=== PATIENT | female | born 1970 | race Caucasian/White ===

== ENCOUNTER 2016-11-16 17:04 | Emergency (ER) | payer OTHER ==
[~2016-11-16 17:04] MED LIST: BACTRIM DS TABL1 TAB PO; BENTYL10 M1 PO; BENTYL20 M1 PO; BENZONATATE PO; CELEXA PO; CELEXA20 M1 PO; CLARITIN D PO; CLARITIN10 MG PO; DEPAKOTE125 MG PO; DESYREL100 MG PO; DICYCLOMINE HCL20 MG PO; DILANTIN KAPSE100 MG PO; DILANTIN PO; FERROUS SULFATE PO; KEFLEX PO; KEPPRA100 MG/ML PO; KEPPRA1000 MG PO; KEPPRA500 MG PO; MOBIC PO; MUCINEX DM1 TAB.SR . PO; PAXIL PO; PHENERGAN PO; PHENERGAN12.5 MG PO; ROBITUSSIN A-C S5 ML PO; SYNTHROID PO; TYLENOL #3 PO; ULTRAM PO; VICODIN 5/500 T1 TAB PO; ZITHROMAX PO
== END 2016-11-16 18:53 | disposition home or self-care (01) ==
LOC: SED 17:04
DX: G43.909 Migraine, unspecified, not intractable, without status migrainosus (principal); I50.9 Heart failure, unspecified; E11.9 Type 2 diabetes mellitus without complications; Z90.49 Acquired absence of other specified parts of digestive tract; F41.9 Anxiety disorder, unspecified; F32.9 Major depressive disorder, single episode, unspecified
CPT/HCPCS: 96361; 96374; 96375; 99284; J1200; J1885; J2405

== ENCOUNTER 2017-01-21 23:30 | Emergency (ER) | payer OTHER ==
--- NOTE | ~2017-01-21 | EKG ---
PATIENT: PAPI VERDUGO UNIT #: [id number] Ventricular Rate: 88 BPM Atrial Rate: 88 BPM P-R Interval: 132 ms QRS Duration: 74 ms Q-T Interval: 412 ms QTC Calculation(Bezet): 498 ms P Irving: 55 degrees Calculated R Irving: 40 degrees Calculated T Irving: 58 degrees Diagnosis Line: Normal sinus rhythm Diagnosis Line: Prolonged QT Diagnosis Line: Abnormal ECG Diagnosis Line: When compared with ECG of 22-OCT-2016 12:08, Diagnosis Line: No significant change was found Diagnosis Line: Confirmed by MARY PAL MD ([id number]) on 01/23/2017 Diagnosis Line: 5:49:54 PM INTERPRETING MD: DEMARCO VELASCO
--- NOTE | ~2017-01-21 | CR63 ---
[facility]. [facility] A Service of [facility] & [facility] RADIOLOGY TEXT RESULTS PATIENT: PAPI VERDUGO LOCATION: SED : 72 UNIT #: [id number] AGE: [address]: Yo Mclaughlin MD SEX: F ORDER DR: [id number] [place] [id number] E MR#: [id number] Acc #: [id number] NAME: PAPI VERDUGO : 1970 SEX: F STUDY DATE/TIME: 01/22/2017 1:02 UNIT: SED ROOM: STUDY DESCRIPTION: CR Chest 2 View Attending Physician: Yo Mclaughlin M.D. Ordering Physician: Yo Mclaughlin M.D. Primary Care Physician: Primary Care Physician No MEDICAL IMAGING REPORT This report is preliminary unless electronic signature is present. EXAM Two-view chest INDICATION Chest pain with expiration. 2-day duration. FINDINGS PA and lateral views of the chest compared to 09/30/2016. Heart and mediastinal contour is normal. Lungs are clear. No pleural effusion. IMPRESSION Negative chest radiograph. Dictated by... Mikhail Haynes M.D. THIS IS AN ELECTRONICALLY VERIFIED REPORT Mikhail Haynes M.D. at 01/22/2017 4:04 AM KEN/lyly TD: 01/22/2017 04:01 JOB #: [id number] MEDICAL IMAGING REPORT Page 1 of 1
[2017-01-21] MEDS ORDERED: DICYCLOMINE HCL20 MG (23:39)
[2017-01-22 00:09] LABS: BASOPHIL% 0.4 % (0-2.5); EOSINOPHIL# 0.2 X10e3 (0-0.7); EOSINOPHIL% 4.9 % (0.0-7.0); HEMATOCRIT 37.1 % (35.0-45.0); HEMOGLOBIN 12.2 gm/dL (12.0-16.0); LYMPHOCYTE# 1.8 X10e3 (1.0-3.5); LYMPHOCYTE% 37.9 % (17.0-45.0); MEAN CELL VOLUME 93.8 FL (83-96); MEAN CORPUSCULAR HEMOGLOBIN 30.8 PG (28-34); MEAN CORPUSCULAR HGB CONC 32.9 g/dL (30-36); MEAN PLATELET VOLUME 10.9 FL (6.5-11.5); MONOCYTE# 0.3 X10e3 (0-1.0); MONOCYTE% 6.7 % (3.0-12.0); NEUTROPHIL# 2.4 X10e3 (1.5-7.1); NEUTROPHIL% 50.1 % (40-75); PLATELET COUNT 127 X10e3 (140-420); RED BLOOD COUNT 3.96 X10e (3.90-5.30); RED CELL DISTRIBUTION WIDTH 14.6 % (11.0-15.5); WHITE BLOOD COUNT 4.8 X10e3 (4.0-10.5)
[2017-01-22 00:11] LABS: DIFF IND NO
[2017-01-22 00:18] LABS: INR 1.1; PROTHROMBIN TIME (PATIENT) 12.9 SECONDS (9.5-12.4)
[2017-01-22 00:23] LABS: POC - CKMB <1.0 ng/mL (0.0-7.9); POC - TROPONIN <0.05 ng/mL (<=0.05)
[2017-01-22 00:31] LABS: ALBUMIN SERUM 3.6 g/dL (3.5-5.0); ALKALINE PHOSPHATASE 89 U/L (32-92); ALT (SGPT) 23 U/L (10-40); AST (SGOT) 19 U/L (10-42); BILIRUBIN, DIRECT <0.1 mg/dL (0.0-0.2); BILIRUBIN,INDIRECT 0.2 mg/dL (0.0-0.9); BILIRUBIN,TOTAL 0.3 mg/dL (0.2-2.0); BLOOD UREA NITROGEN 20 mg/dL (9-23); BUN/CREATININE RATIO 28.57; CALCIUM SERUM 7.9 mg/dL (8.4-10.2); CARBON DIOXIDE 25 mmol/L (22-31); CHLORIDE 113 mmol/L (100-111); CREATININE SERUM 0.7 mg/dL (0.6-1.4); GLOM FILT RATE Estimated 104.6 mL/min (>60); GLUCOSE FASTING 68 mg/dL (70-110); POTASSIUM 3.6 mmol/L (3.5-5.1); PROTEIN TOTAL SERUM 5.8 g/dL (6.0-8.3); SODIUM 140 mmol/L (135-145)
[2017-01-22 00:43] LABS: PARTIAL THROMBOPLASTIN TIME 27.6 SECONDS (25.6-38.1)
[2017-01-22 00:51] LABS: DDIMER <200 NG/ML (0-200)
== END 2017-01-22 01:43 | disposition home or self-care (01) ==
LOC: SED 23:30
PROVIDERS: Emergency Medicine
DX: R07.89 Other chest pain (principal); R94.31 Abnormal electrocardiogram [ECG] [EKG]; Z98.890 Other specified postprocedural states; Z88.6 Allergy status to analgesic agent; Z79.899 Other long term (current) drug therapy
CPT/HCPCS: 36415; 71020; 80048; 80076; 82553; 83735; 84484; 85025; 85379; 85610; 85730; 93005; 99284

== ENCOUNTER 2017-03-03 21:59 | Emergency (ER) | payer OTHER ==
[~2017-03-03 21:59] MED LIST changes: +DICYCLOMINE HCL20 MG
[2017-03-03] MEDS ORDERED: IRON325 MG (22:18)
[2017-03-03] MEDS ORDERED: SYNTHROID (22:18)
== END 2017-03-03 23:01 | disposition home or self-care (01) ==
LOC: SED 21:59
DX: S90.562A Insect bite (nonvenomous), left ankle, initial encounter (principal); L03.116 Cellulitis of left lower limb; Z88.6 Allergy status to analgesic agent; Z79.899 Other long term (current) drug therapy; X58.XXXA Exposure to other specified factors, initial encounter; Y92.9 Unspecified place or not applicable
CPT/HCPCS: 99282